=== PATIENT | male | born 1955 | race Caucasian/White ===

== ENCOUNTER 2019-06-25 16:31 | Emergency (ER) | payer MEDICAID ==
--- NOTE | 2019-06-25 16:42 | Emergency Department Record ---
History of Present Illness - General Chief Complaint: Headache Migraine Stated Complaint: HANKS Time Seen by Provider: 06/25/19 16:38 Source: Patient Mode of Arrival: Ambulatory Limitations: No limitations - History of Present Illness Initial Comments: 63 yo male presents to ED for evaluation of elevated blood pressure following recent pre-operative physical examination for a few areas of basal cell carcinoma to be removed in June. Patient reports that he was sent to [facility], underwent evaluation and started on Lisinopril 2.5 mg daily. Alba rankin's PCP has been on maternity leave, has not been able to schedule an appointment until 07/03/19. Patient however reports intermittent headaches for the past 10 days, denies previous history of headache symptoms. Patient denies neck stiffness, fevers, chills, or use of anticoagulation medications. Patient rates his headache at 5-6/10, described as throbbing that is better in the morning, worse by the evening time. MD Complaint: Headache Onset/Timin -: Days(s) Onset Description: Gradual Location: Diffuse Severity: Moderate Quality: Throbbing Consistency: Intermittent Improves With: Nothing Worsens With: None - Related Data Home Medications Medication Instructions Recorded Confirmed Last Taken Baclofen 10 mg PO DAILY 06/25/19 06/25/19 Unknown Ibuprofen [Motrin] 800 mg PO DAILY 06/25/19 06/25/19 Unknown Tramadol HCl [Ultram] 50 mg PO BID 06/25/19 06/25/19 Unknown Allergies Allergy/AdvReac Type Severity Reaction Status Date / Time No Known Allergies Allergy none Verified 06/25/19 16:43 Review of Systems Constitutional: Denies: Chills, Fever, Malaise, Night sweats Eyes: Denies: Eye discharge, Eye pain ENT: Denies: Congestion, Ear pain, Epistaxis Respiratory: Denies: Cough, Dyspnea Cardiovascular: Denies: Chest pain, Dyspnea on exertion Endocrine: Denies: Fatigue, Heat or cold intolerance Gastrointestinal: Denies: Abdominal pain, Constipation, Nausea, Vomiting Genitourinary: Denies: Incontinence, Retention Musculoskeletal: Denies: Arthralgia, Back pain Skin: Denies: Bruising, Change in color Neurological: Reports: Headache. Denies: Abnormal gait, Confusion, Tingling, Tremors Psychiatric: Denies: Anxiety Hematological/Lymphatic: Denies: Anemia, Blood Clots Physical Exam - General General Appearance: Alert, Oriented x3, Cooperative, No acute distress Limitations: No limitations - Head Head exam: Atraumatic, Normocephalic, Normal inspection Head exam detail: negative: Abrasion, Contusion, Ahn's sign, General tenderness, Hematoma, Laceration - Eye Eye exam: Normal appearance. negative: Conjunctival injection, Periorbital swelling, Periorbital tenderness, Scleral icterus - ENT Ear exam: negative: Auricular hematoma, Auricular trauma Nasal Exam: negative: Active bleeding, Discharge, Dried blood, Foreign body Mouth exam: negative: Drooling, Laceration, Muffled voice, Tongue elevation - Neck Neck exam: Normal inspection. negative: Meningismus, Tenderness - Respiratory Respiratory exam: Normal lung sounds bilaterally. negative: Respiratory distress, Rhonchi, Stridor, Wheezes - Cardiovascular Cardiovascular Exam: Regular rate, Normal rhythm, Normal heart sounds - GI/Abdominal GI/Abdominal exam: Soft. negative: Distended, Rebound, Rigid, Tenderness - Rectal Rectal exam: Deferred - exam: Deferred - Extremities Extremities exam: Normal inspection. negative: Pedal edema, Tenderness - Back Back exam: Denies: CVA tenderness (R), CVA tenderness (L) - Neurological Neurological exam: Alert, Normal gait, Oriented X3 - Psychiatric Psychiatric exam: Normal affect, Normal mood - Skin Skin exam: Normal color. negative: Abrasion Type of lesion: negative: abrasion Course - Reevaluation(s) Reevaluation #1: 06/25/19 17:36 CT Brain: No acute process Laboratory studies from [facility] were obtained from 06/20/19 Laboratory studies are grossly unremarkable for an acute process. I discussed symptomatic treatment at home for patient's headache symptoms No clinical evidence for SAH or meningitis based on my examination, and therefore LP is not recommended. Disposition Disposition: Discharge Clinical Impression: Acute headache Qualifiers: Headache type: unspecified Intractability: not intractable Qualified Code(s): R51 - Headache Disposition: Home, Self-Care Condition: (2) Stable Instructions: Acute Headache (ED) Additional Instructions: Return to ED if your symptoms worsen or if you have any concerns. Ibuprofen as needed. Follow-up with your family doctor in 5-7 days as directed. Forms: Patient Portal Access Time of Disposition: 17:33 Quality - Quality Measures Quality Measures: N/A - Blood Pressure Screening Does Patient Have Any of the Following: No Blood Pressure Classification: Hypertensive Reading Systolic Measurement: 173 Diastolic Measurement: 93 Screening for High Blood Pressure: < Second Hypertensive BP, F/U Documented > [G8950] Second Hypertensive Follow-up Interventions: Referral to alternative/primary care provider.
--- NOTE | 2019-06-25 17:26 | CT SCAN REPORT ---
EXAMINATION: HEAD WO CONTRAST EXAM DATE: 06/25/2019 5:17 PM TECHNIQUE: Noncontrast axial images were obtained to the brain. INDICATION: headache, elevated BP COMPARISON: None. ENCOUNTER: Not applicable HAND DOMINANCE: Unknown FINDINGS: The brain parenchyma is unremarkable for age. No loss of zimmerman-white matter differentiation or sulcal effacement to indicate acute infarction. No evidence of intracranial mass. The ventricles, sulci, and subarachnoid spaces are unremarkable mildly enlarged for age. The basal ci sterns are patent and there is no midline shift or herniation. No intra-axial or extra-axial fluid collection. No evidence of intracranial hemorrhage. The paranasal sinuses, mastoid air cells, and orbits are unremarkable. The calvarium is intact. IMPRESSION: 1. No CT evidence of intracranial hemorrhage or acute intracranial abnormality. 2. Mild cerebral atrophy Dictated by: MADAN MARTE MD on 06/25/2019 5:22 PM. .
== END 2019-06-25 17:51 | disposition home or self-care (01) ==
LOC: ER 16:31
DX: R51 Headache (principal); I10 Essential (primary) hypertension
CPT/HCPCS: 70450; 99284